=== PATIENT | female | born 1955 | race Caucasian/White ===

== ENCOUNTER 2020-10-25 14:02 | Outpatient (CLI) | payer MEDICARE, MEDICAID, SELFPAY | END 2020-10-25 14:03 | disposition home or self-care (01) | PROVIDERS: Family Provider Family Medicine; Visit Provider Nurse Practitioner Family | DX: L89.223 Pressure ulcer of left hip, stage 3 (principal); L89.620 Pressure ulcer of left heel, unstageable; L89.153 Pressure ulcer of sacral region, stage 3 | CPT/HCPCS: 11042; 11045; 87070; 87077; 87176; 87186; 87205; 99214; L4397 ==

== ENCOUNTER 2020-11-09 09:32 | Outpatient (CLI) | payer MEDICARE, MEDICAID, SELFPAY | END 2020-11-09 09:33 | disposition home or self-care (01) | LOC: WOUND 09:33 | PROVIDERS: Family Provider Family Medicine; PCP Internal Medicine; Visit Provider Nurse Practitioner Family | DX: L89.620 Pressure ulcer of left heel, unstageable (principal); L89.153 Pressure ulcer of sacral region, stage 3; L89.224 Pressure ulcer of left hip, stage 4 | CPT/HCPCS: 11042; 11045 ==

== ENCOUNTER 2020-11-16 09:32 | Outpatient (CLI) | payer MEDICARE, MEDICAID, SELFPAY | END 2020-11-16 09:33 | disposition home or self-care (01) | LOC: WOUND 09:38 | PROVIDERS: Family Provider Family Medicine; PCP Internal Medicine; Visit Provider Nurse Practitioner Family | DX: L89.620 Pressure ulcer of left heel, unstageable (principal); L89.153 Pressure ulcer of sacral region, stage 3; L89.224 Pressure ulcer of left hip, stage 4 | CPT/HCPCS: 11042; 11045 ==

== ENCOUNTER 2020-11-24 14:31 | Outpatient (CLI) | payer MEDICARE, MEDICAID, SELFPAY | END 2020-11-24 14:32 | disposition home or self-care (01) | LOC: WOUND 14:32 | PROVIDERS: Family Provider Family Medicine; PCP Internal Medicine; Visit Provider Surgery | DX: L89.620 Pressure ulcer of left heel, unstageable (principal); L89.153 Pressure ulcer of sacral region, stage 3; L89.224 Pressure ulcer of left hip, stage 4 | CPT/HCPCS: 11042; 11043; 11046; 17250; 97606 ==

== ENCOUNTER → 2020-11-28 10:00 | Outpatient (BNVA) | payer MEDICARE, MEDICAID, SELFPAY | PROVIDERS: Family Provider Family Medicine; PCP Internal Medicine; Referring Provider Nurse Practitioner Family; Visit Provider Student in an Organized Health Care Education/Training Program | DX: L89.90 Pressure ulcer of unspecified site, unspecified stage (principal) | CPT/HCPCS: 87070; 87075; 87077; 87184; 87205 ==

== ENCOUNTER 2020-12-01 14:43 | Outpatient (CLI) | payer MEDICARE, MEDICAID, SELFPAY | END 2020-12-01 14:44 | disposition home or self-care (01) | LOC: WOUND 14:45 | PROVIDERS: Family Provider Family Medicine; PCP Internal Medicine; Visit Provider Surgery | DX: I96 Gangrene, not elsewhere classified (principal); L89.620 Pressure ulcer of left heel, unstageable; L89.153 Pressure ulcer of sacral region, stage 3; L89.224 Pressure ulcer of left hip, stage 4 | CPT/HCPCS: 11042; 11043; 11046; 87186; 97606 ==

== ENCOUNTER 2020-12-04 10:09 | Outpatient (CLI) | payer MEDICARE, MEDICAID, SELFPAY ==
--- NOTE | 2020-12-04 10:18 | CT_ITS ---
WS: [id number] CONTRAST-ENHANCED CT LEFT LOWER LEG TECHNIQUE: Contrast-enhanced CT left lower leg with coronal and sagittal reformatted images. CLINICAL INFORMATION: EVAL OUTER LYING OSTEOMYELITIS COMPARISON: None. DLP: 1221.[address] scans at [facility] use at least one of these dose optimization techniques: automat ed exposure control; mA and/or kV adjustment per patient size (includes targeted exams where dose is matched to clinical indication); or iterative reconstruction. FINDINGS: Decubitus ulcer/soft tissue ulceration involving the left hip at the level of the greater t rochanter. Surrounding soft tissue thickening with underlying bony irregularity at the greater trocha nter. Findings compatible with osteomyelitis. Additional evidence of osteomyelitis with cortical thic kening and irregularity extending along the left proximal femoral shaft with subcortical lucency. Ass ociated soft tissue thickening with a small amount of peripheral enhancing soft tissue likely phlegmo n/abscess along the left proximal femoral shaft. This does not appear drainable. This measures approx imately 3.9 x 2.1 CM. Distal femoral shaft is normal in appearance. Normal pubic rami. No inguinal lymphadenopathy. Vascular calcification. Estevez catheter in place. Adva nced tricompartmental arthritis Left knee. CT/CT lower leg LT w con [id number] IMPRESSION: 1. Soft tissue ulceration overlying the left hip with underlying bony irregula rity consistent with osteomyelitis along the greater trochanter 2. Additional evidence of osteomyelitis with cortical thickening and irregular ity extending along the left proximal femoral shaft. 3. Associated surrounding soft tissue thickening with a small amount of periph eral enhancing phlegmon/abscess along the left proximal femoral shaft. This collins s not appear drainable 4. Distal femoral shaft appears normal. 5. Estevez catheter.
[2020-12-04] MEDS: iohexol 300 mg/mL 100 mL Btl IV (11:14)
== END 2020-12-04 10:10 | disposition home or self-care (01) ==
LOC: RAD 10:11
PROVIDERS: Family Provider Family Medicine; PCP Internal Medicine; Visit Provider Student in an Organized Health Care Education/Training Program
DX: M86.9 Osteomyelitis, unspecified (principal); L98.499 Non-pressure chronic ulcer of skin of other sites with unspecified severity
CPT/HCPCS: 73701

== ENCOUNTER 2020-12-08 14:19 | Outpatient (CLI) | payer MEDICARE, MEDICAID, SELFPAY | END 2020-12-08 14:20 | disposition home or self-care (01) | LOC: WOUND 14:19 | PROVIDERS: Family Provider Family Medicine; PCP Internal Medicine; Visit Provider Surgery | DX: I96 Gangrene, not elsewhere classified (principal); L89.622 Pressure ulcer of left heel, stage 2; L89.224 Pressure ulcer of left hip, stage 4 | CPT/HCPCS: 11043; 11046; 97606 ==

== ENCOUNTER 2020-12-15 15:19 | Outpatient (CLI) | payer MEDICARE, MEDICAID, SELFPAY | END 2020-12-15 15:20 | disposition home or self-care (01) | LOC: WOUND 15:21 | PROVIDERS: Family Provider Family Medicine; PCP Internal Medicine; Visit Provider Surgery | DX: I96 Gangrene, not elsewhere classified (principal); L89.622 Pressure ulcer of left heel, stage 2; L89.224 Pressure ulcer of left hip, stage 4 | CPT/HCPCS: 11043; 97606 ==

== ENCOUNTER 2020-12-22 14:45 | Outpatient (CLI) | payer MEDICARE, MEDICAID, SELFPAY | END 2020-12-22 14:46 | disposition home or self-care (01) | LOC: WOUND 14:46 | PROVIDERS: Family Provider Family Medicine; PCP Internal Medicine; Visit Provider Surgery | DX: L89.622 Pressure ulcer of left heel, stage 2 (principal); L89.224 Pressure ulcer of left hip, stage 4 | CPT/HCPCS: 11043; 97605 ==

== ENCOUNTER 2020-12-29 14:34 | Outpatient (CLI) | payer MEDICARE, MEDICAID, SELFPAY | END 2020-12-29 14:35 | disposition home or self-care (01) | LOC: WOUND 14:36 | PROVIDERS: Family Provider Family Medicine; PCP Internal Medicine; Visit Provider Surgery | DX: I96 Gangrene, not elsewhere classified (principal); L89.622 Pressure ulcer of left heel, stage 2; L89.224 Pressure ulcer of left hip, stage 4 | CPT/HCPCS: 11042; 11043; 11046; 97606 ==

== ENCOUNTER 2021-01-19 14:15 | Outpatient (CLI) | payer MEDICARE, MEDICAID, SELFPAY | END 2021-01-19 14:16 | disposition home or self-care (01) | LOC: WOUND 14:15 | PROVIDERS: Family Provider Family Medicine; PCP Internal Medicine; Visit Provider Surgery | DX: L89.622 Pressure ulcer of left heel, stage 2 (principal); L89.224 Pressure ulcer of left hip, stage 4 ==

== ENCOUNTER 2021-01-19 14:38 | Outpatient (CLI) | payer MEDICARE, MEDICAID, SELFPAY | END 2021-01-19 14:39 | disposition home or self-care (01) | LOC: WOUND 14:39 | PROVIDERS: Family Provider Family Medicine; PCP Internal Medicine; Visit Provider Surgery | DX: L89.622 Pressure ulcer of left heel, stage 2 (principal); L89.224 Pressure ulcer of left hip, stage 4 | CPT/HCPCS: 11044; 11047 ==

== ENCOUNTER 2021-01-26 13:23 | Outpatient (CLI) | payer MEDICARE, MEDICAID, SELFPAY | END 2021-01-26 13:24 | disposition home or self-care (01) | LOC: WOUND 13:25 | PROVIDERS: Family Provider Family Medicine; PCP Internal Medicine; Visit Provider Surgery | DX: L89.622 Pressure ulcer of left heel, stage 2 (principal); L89.224 Pressure ulcer of left hip, stage 4 | CPT/HCPCS: 11043; 11046; 97606 ==

== ENCOUNTER 2021-01-30 09:05 | Outpatient (CLI) | payer MEDICARE, MEDICAID, SELFPAY ==
--- NOTE | 2021-01-30 09:16 | NM_ITS ---
WS: [id number] NUCLEAR MEDICINE 3 PHASE BONE SCAN Radiopharmaceutical: 24.9 Tc-99m MDP mCi IV Injection site: Right antecubital Postinjection imaging delay: 3 hr CLINICAL INFORMATION: BACTEREMIA COMPARISON: None. FINDINGS: Body habitus somewhat limits examination. Attention to the left hip. Reported decubitus ulc er left lateral hip with hardware intact. Correlation CT December 04, 2020 Slight increased blood flow and more prominent increased blood pool activity overlying the left hip c onsistent with cellulitis. Increased blood pool and delayed bone activity involving the left greater trochanter and proximal femoral shaft along the lateral aspect suspicious for osteomyelitis. This cor responds to findings seen on the prior CT. Degenerative arthritis both knees. Focal punctate radiotracer uptake involving the costovertebral milli ction in the mid thoracic spine likely degenerative. Additional punctate focus of uptake involving an upper left anterior rib approximately the second or third left rib anteriorly. This is nonspecific b ut may be related to trauma. Soft tissue contours: Normal. Kidneys: Normal. Other findings: None. NM/NM bone 3 phase [id number] IMPRESSION: 1. Three-phase bone activity involving the left greater trochanter and proxima l femoral shaft laterally most consistent with residual osteomyelitis in the sa me locations as seen on the prior CT. 2. Associated low-grade uptake in the soft tissues consistent with cellulitis. 3. Nonspecific foci of uptake involving the mid right costovertebral junction and left upper rib anteriorly. This may be degenerative or posttraumatic in the absence of history of malignancy. This can be followed up with bone scan in 3- 6 months
== END 2021-01-30 09:06 | disposition home or self-care (01) ==
LOC: RAD 09:14
PROVIDERS: PCP Internal Medicine; Visit Provider Internal Medicine
DX: R78.81 Bacteremia (principal)
CPT/HCPCS: 78315; A9561

== ENCOUNTER 2021-02-02 14:33 | Outpatient (CLI) | payer MEDICARE, MEDICAID, SELFPAY | END 2021-02-02 14:34 | disposition home or self-care (01) | LOC: WOUND 14:34 | PROVIDERS: PCP Internal Medicine; Visit Provider Surgery | DX: L89.224 Pressure ulcer of left hip, stage 4 (principal) | CPT/HCPCS: 11043; 11046; 97606 ==

== ENCOUNTER 2021-02-09 13:52 | Outpatient (CLI) | payer MEDICARE, MEDICAID, SELFPAY | END 2021-02-09 13:53 | disposition home or self-care (01) | LOC: WOUND 13:54 | PROVIDERS: PCP Internal Medicine; Visit Provider Surgery | DX: L89.224 Pressure ulcer of left hip, stage 4 (principal) | CPT/HCPCS: 11043; 11046; 97606 ==

== ENCOUNTER 2021-03-09 13:54 | Outpatient (CLI) | payer MEDICARE, MEDICAID, SELFPAY | END 2021-03-09 13:55 | disposition home or self-care (01) | LOC: WOUND 13:58 | PROVIDERS: PCP Internal Medicine; Visit Provider Nurse Practitioner Family | DX: L89.224 Pressure ulcer of left hip, stage 4 (principal) | CPT/HCPCS: 11042; 11045; 97606 ==

== ENCOUNTER 2021-03-23 14:05 | Outpatient (CLI) | payer MEDICARE, MEDICAID, SELFPAY | END 2021-03-23 14:06 | disposition home or self-care (01) | LOC: WOUND 14:08 | PROVIDERS: PCP Internal Medicine; Visit Provider Surgery | DX: L89.224 Pressure ulcer of left hip, stage 4 (principal) | CPT/HCPCS: 11043; 11046; 97605 ==

== ENCOUNTER 2021-03-30 14:07 | Outpatient (CLI) | payer MEDICARE, MEDICAID, SELFPAY | END 2021-03-30 14:08 | disposition home or self-care (01) | LOC: WOUND 14:08 | PROVIDERS: PCP Internal Medicine; Visit Provider Surgery | DX: L89.224 Pressure ulcer of left hip, stage 4 (principal) | CPT/HCPCS: 11042; 11045 ==

== ENCOUNTER 2021-04-06 13:53 | Outpatient (CLI) | payer MEDICARE, MEDICAID, SELFPAY | END 2021-04-06 13:54 | disposition home or self-care (01) | LOC: WOUND 13:53 | PROVIDERS: PCP Internal Medicine; Visit Provider Nurse Practitioner Family | DX: L89.224 Pressure ulcer of left hip, stage 4 (principal) | CPT/HCPCS: 11042; 11045 ==

== ENCOUNTER 2021-04-13 14:03 | Outpatient (CLI) | payer MEDICARE, MEDICAID, SELFPAY | END 2021-04-13 14:04 | disposition home or self-care (01) | LOC: WOUND 14:04 | PROVIDERS: PCP Internal Medicine; Visit Provider Surgery | DX: L89.224 Pressure ulcer of left hip, stage 4 (principal) | CPT/HCPCS: 11043; 11046; 97605 ==

== ENCOUNTER 2021-04-20 14:15 | Outpatient (CLI) | payer MEDICARE, MEDICAID, SELFPAY | END 2021-04-20 14:16 | disposition home or self-care (01) | LOC: WOUND 14:16 | PROVIDERS: PCP Internal Medicine; Visit Provider Surgery | DX: L89.224 Pressure ulcer of left hip, stage 4 (principal) | CPT/HCPCS: 11042; 11045; 97605 ==

== ENCOUNTER 2021-04-27 13:46 | Outpatient (CLI) | payer MEDICARE, MEDICAID, SELFPAY | END 2021-04-27 13:47 | disposition home or self-care (01) | LOC: WOUND 13:49 | PROVIDERS: PCP Internal Medicine; Visit Provider Nurse Practitioner Family | DX: L89.224 Pressure ulcer of left hip, stage 4 (principal) | CPT/HCPCS: 11042; 11045; 97605 ==

== ENCOUNTER 2021-05-04 14:05 | Outpatient (CLI) | payer MEDICARE, MEDICAID, SELFPAY | END 2021-05-04 14:06 | disposition home or self-care (01) | LOC: WOUND 14:06 | PROVIDERS: PCP Internal Medicine; Visit Provider Thoracic Surgery (Cardiothoracic Vascular Surgery) | DX: L89.224 Pressure ulcer of left hip, stage 4 (principal) | CPT/HCPCS: 11042; 11045; 97605 ==

== ENCOUNTER 2021-05-11 13:25 | Outpatient (CLI) | payer MEDICARE, MEDICAID, SELFPAY | END 2021-05-11 13:26 | disposition home or self-care (01) | LOC: WOUND 13:26 | PROVIDERS: PCP Internal Medicine; Visit Provider Surgery | DX: L89.224 Pressure ulcer of left hip, stage 4 (principal) | CPT/HCPCS: 11042; 11045 ==

== ENCOUNTER 2021-05-18 14:38 | Outpatient (CLI) | payer MEDICARE, MEDICAID, SELFPAY | END 2021-05-18 14:39 | disposition home or self-care (01) | LOC: WOUND 14:40 | PROVIDERS: PCP Internal Medicine; Visit Provider Surgery | DX: I96 Gangrene, not elsewhere classified (principal); L89.224 Pressure ulcer of left hip, stage 4 | CPT/HCPCS: 11042; 11045 ==

== ENCOUNTER 2021-05-25 12:59 | Outpatient (CLI) | payer MEDICARE, MEDICAID, SELFPAY | END 2021-05-25 13:00 | disposition home or self-care (01) | LOC: WOUND 13:00 | PROVIDERS: PCP Internal Medicine; Visit Provider Surgery | DX: I96 Gangrene, not elsewhere classified (principal); L89.224 Pressure ulcer of left hip, stage 4 | CPT/HCPCS: 11042; 11045 ==

== ENCOUNTER 2021-06-01 13:02 | Outpatient (CLI) | payer MEDICARE, MEDICAID, SELFPAY | END 2021-06-01 13:03 | disposition home or self-care (01) | LOC: WOUND 13:03 | PROVIDERS: PCP Internal Medicine; Visit Provider Surgery | DX: I96 Gangrene, not elsewhere classified (principal); L89.224 Pressure ulcer of left hip, stage 4 | CPT/HCPCS: 11042; 11045 ==

== ENCOUNTER 2021-06-08 13:18 | Outpatient (CLI) | payer MEDICARE, MEDICAID, SELFPAY | END 2021-06-08 13:19 | disposition home or self-care (01) | LOC: WOUND 13:19 | PROVIDERS: PCP Internal Medicine; Visit Provider Surgery | DX: I96 Gangrene, not elsewhere classified (principal); L89.224 Pressure ulcer of left hip, stage 4; E11.9 Type 2 diabetes mellitus without complications | CPT/HCPCS: 11042; 11045 ==

== ENCOUNTER 2021-09-28 10:09 | Outpatient (CLI) | payer MEDICARE, MEDICAID, SELFPAY | END 2021-09-28 10:10 | disposition home or self-care (01) | LOC: WOUND 10:09 | PROVIDERS: PCP Internal Medicine; Visit Provider Surgery | DX: L89.892 Pressure ulcer of other site, stage 2 (principal) | CPT/HCPCS: 11042; G0463 ==

== ENCOUNTER → 2022-10-30 10:36 | Outpatient (BNVA) | payer MEDICARE, MEDICAID, SELFPAY | PROVIDERS: PCP Family Medicine; Visit Provider Family Medicine | DX: R32 Unspecified urinary incontinence; R42 Dizziness and giddiness; E66.01 Morbid (severe) obesity due to excess calories; E03.9 Hypothyroidism, unspecified; E11.9 Type 2 diabetes mellitus without complications; L98.9 Disorder of the skin and subcutaneous tissue, unspecified; E55.9 Vitamin D deficiency, unspecified; G24.9 Dystonia, unspecified; Z79.899 Other long term (current) drug therapy | CPT/HCPCS: 80053; 80061; 82306; 82607; 82746; 83036; 83735; 84443; 85025 ==

== ENCOUNTER → 2023-01-08 10:51 | Outpatient (BNVA) | payer MEDICARE, SELFPAY | PROVIDERS: PCP Family Medicine; Visit Provider Family Medicine | DX: E11.9 Type 2 diabetes mellitus without complications (principal); E03.9 Hypothyroidism, unspecified | CPT/HCPCS: 84439; 84443; 84481 ==

== ENCOUNTER → 2023-08-07 10:02 | Outpatient (BNVA) | payer MEDICARE, MEDICAID, SELFPAY | PROVIDERS: PCP Family Medicine; Visit Provider Family Medicine | DX: E03.9 Hypothyroidism, unspecified (principal); N32.81 Overactive bladder; E11.9 Type 2 diabetes mellitus without complications; E87.70 Fluid overload, unspecified; R53.83 Other fatigue; G25.0 Essential tremor; R32 Unspecified urinary incontinence | CPT/HCPCS: 80053; 80061; 81000; 82607; 82746; 83036; 83735; 84443; 85025 ==

== ENCOUNTER → 2024-01-15 10:33 | Outpatient (BNVA) | payer MEDICARE, MEDICAID, SELFPAY | PROVIDERS: PCP Nurse Practitioner Family; Visit Provider Nurse Practitioner Family | DX: M54.50 Low back pain, unspecified (principal); G89.29 Other chronic pain; I50.9 Heart failure, unspecified; R53.1 Weakness; L89.90 Pressure ulcer of unspecified site, unspecified stage; I10 Essential (primary) hypertension; E11.9 Type 2 diabetes mellitus without complications; E03.9 Hypothyroidism, unspecified; G24.9 Dystonia, unspecified; R06.02 Shortness of breath; R53.83 Other fatigue; D64.9 Anemia, unspecified | CPT/HCPCS: 80053; 81003; 83036; 83550; 83880; 84439; 84443; 84481; 85025; 87086 ==

== ENCOUNTER → 2024-01-21 10:21 | Outpatient (BNVA) | payer MEDICARE, MEDICAID, SELFPAY | PROVIDERS: PCP Nurse Practitioner Family; Visit Provider Nurse Practitioner Family | DX: N32.81 Overactive bladder (principal) | CPT/HCPCS: 81003; 87077; 87086; 87184 ==